=== PATIENT | male | born 1985 | race African-American/Black ===

== ENCOUNTER 2024-10-13 01:02 | Day surgery (SDC) | payer OTHER, SELFPAY ==
[2024-09-28 12:22] VITALS: BMI 25.2
--- NOTE | 2024-09-28 12:27 | PC.NURSE ---
Report to hospital entrance 7 right of the green pavilion located off [facility] by Joe gonzalez, at time _0630_ on date _[id number]_. Planned Procedure Time: _829_.? Time changes happen often and if your time is changed the preop area will call you the afternoon before. - You and your visitor will be asked to self-screen and do not enter if you have any COVID symptoms. Please call surgeon if you need to reschedule. - A mask is optional within the hospital at this time. Patients may have clear liquids (water, carbonated beverages, clear teas, apple juice) until 3 hours prior to surgery with a maximum of 20 ounces. - No food from midnight until time of surgery and no smoking, or chewing tobacco (or any form of nicotine). No chewing gum, candy or mints. Take only the following medications with a SIP of water on the morning of surgery: ___Inhalers.____ DO NOT STOP ANY OF YOUR OTHER PRESCRIPTION MEDICATIONS PRIOR TO SURGERY EXCEPT THE FOLLOWING Hold all vitamins and supplements for 3 days per anesthesiologist. Medications to discontinue per physician Date to take last dose Please no make-up, nail english, hairspray, perfume, deodorant, or body powder the day of surgery.? No jewelry (including any body piercings) or valuables the day of surgery, leave them at home.? Please take a shower or bath the night before, or the morning of, surgery with an antibacterial soap.? Wear comfortable, loose fitting clothing.? - Jewelry must be removed prior to entering the operating room.? Rings and piercings that are not removed may be cut off. - The hospital will not accept responsibility for valuables.? - Please leave all valuables, including medications, at home the day of surgery. If you are going home after surgery, a licensed wagon driver must drive you home.? - NO public transportation without another adult if you receive anesthesia. - We recommend that an adult stay with you for 24 hours following discharge. - We also recommend that you do not drive, make important decision, drink alcoholic beverages, or take any drugs that were not prescribed by your health care provider for at least 24 hours after your discharge time. Follow any additional instructions given to you from your surgeon. Telephone instructions given to __Caitlin Perez___and asked if any additional questions and then verbalized understanding. Patient advised to call surgeon office or pre surgery nurse liaison [phone] if any additional questions.
--- NOTE | 2024-10-03 08:02 | P.HP_ITS ---
History of Present Illness History of Present Illness Consent: Risks, benefits, and alternatives have been discussed and questions answered. Patient agrees to proceed with procedure. Chief complaint: bulbous urethral stricture Narrative: Aravind Fong is a 38 year old male [facility] 07/2023: ?FOV in [facility] after care by Dr. Mack ?- 03/2023: [facility] dense 2cm bulbous urethral stricture 07/2023: ?PVR: 25cc Cysto. dense bulbous stricture Review of Systems Review of Systems: All systems reviewed & are unremarkable except as noted in HPI and below PMFSH Social History Social History Living arrangements: incarcerated Meds Home Medications and Allergies Home Medications ?Medication ?Instructions ?Recorded ?Confirmed ?Type albuterol 90 mcg/actuation aerosol 180 mcg inhalation QID PRN dyspnea 09/28/24 09/28/24 History inhaler mometasone 220 mcg/actuation(120 1 inh inhalation Q12H 09/28/24 09/28/24 History doses)breath activated powder inhaler tiotropium bromide 18 mcg capsule 1 cap inhalation DAILY 09/28/24 09/28/24 History with inhalation device (Spiriva with HandiHaler) Allergies Allergy/AdvReac Type Severity Reaction Status Date / Time No Known Allergies Allergy Verified 09/28/24 12:17 Exam Const: General: no acute distress Resp: Effort & Inspection: normal respiratory effort GI: Inspection: non-distended GI Palp: No abdominal tenderness and No Guarding due to palpation present (GI) Auscultation: normal bowel sounds Assessment and Plan Assessment and plan (1) Bulbous urethral stricture: Code(s): N35.912 - Unspecified bulbous urethral stricture, male Status: Acute Assessment and Plan: * Optical internal urethrotomy - aware of possible indwelling cateter for several days
[2024-10-13] VITALS (7 sets, daily range): BP systolic 102–143; BP diastolic 70–98; PULSE 59–70; RESP 12–16; TEMP 36.4–36.7; O2SAT 100
--- OUTSIDE RECORDS SUMMARY | 2024-10-13 01:05 | XMS_ITS | Clinical Summary ---
Author Organization [facility] Address [address] [place] [address] Care Team Providers Care Body Trimmer Name Role Phone Nighat Ziegler MD, [facility] Primary Care Provider [phone] Allergies No known active allergies Medications albuterol (PROVENTIL) (2.5 MG/3ML) 0.083% nebulizer solution Take 3 mLs (2.5 mg total) by nebulization every 6 (six) hours as needed for Wheezing. Active fluticasone-lauren meterol (ADVAIR DISKUS) 250-50 MCG/ACT inhaler Inhale 1 puff into the lungs 2 (two) times daily. Active Active Problems Problem Noted Date Diagnosed Date Stricture of male urethra, unspecified stricture type 02/25/2023 Social History Tobacco Use Types Packs/Day Years Used Date Smoking Tobacco: Never Passive Smoke Exposure: Never Smokeless Tobacco: Never Tobacco Cessation:Counseling Given: Not Answered Sex and Gender Information Value Date Recorded Sex Assigned at Not on file Legal Sex Male 3:28 PM CDT Gender Identity Not on file Sexual Orientation Not on file Last Filed Vital Signs Vital Sign Reading Time Taken Comments Blood Pressure 145/92 03/06/2023 10:06 AM SERVICES ACCOUNT MANAGER Pulse 50 03/06/2023 10:06 AM SERVICES ACCOUNT MANAGER Temperature 37 C (98.6 F) 03/06/2023 9:35 AM SERVICES ACCOUNT MANAGER Respiratory Rate 18 03/06/2023 10:06 AM SERVICES ACCOUNT MANAGER Oxygen Saturation 100% 03/06/2023 10:06 AM SERVICES ACCOUNT MANAGER Inhaled Oxygen Concentration - - Weight 84.8 kg (187 lb) 03/06/2023 7:57 AM SERVICES ACCOUNT MANAGER Height 193 cm (6' 4) 03/06/2023 7:57 AM SERVICES ACCOUNT MANAGER Body Mass Index 22.76 03/06/2023 7:57 AM SERVICES ACCOUNT MANAGER Plan of Treatment Health Maintenance Due Date Last Done Comments Annual Physical 1989 Hepatitis C 2004 DTaP, Tdap and Td Vaccines ( 1 - Tdap) 2005 Hepatitis B Vaccines (1 of 3 - 19+ 3-dose series) 2005 HPV Vaccines (1 - 3-dose SCD M series) 2013 COVID-19 Vaccine (1 - 2023-2 5 season) 2023 PHQ-2 (Physician [place]) 03/02/2024 Meningococcal B Vaccine Aged Out No l onger eligible based on patient's age to complete this topic Meningococcal Vaccine Aged Out No narayan betito eligible based on patient's age to complete this topic Pneumococcal Vaccine: Pediat rics (0 to 5 Years) and At-Risk Patients (6 to 49 Years) Aged Out No longer eligible b ased on patient's age to complete this topic RSV Immunizations Under 20 Months Aged Out No longer eligible based on patient's age to complete this topic Insurance [employer] Member Subscriber Plan / Payer (Ef fective 2022-Present) Name:Aravind Fong Relation to Subscriber:Self Name:Aravind Fong Payer ID:Not on file Group ID:Not on file Type:Not on file Address: [address] [place] [id number] Care Teams Body Trimmer Relationship Specialty Start Date End Date Tariq Disla MD [facility] [address] [place] [address] PCP - General INTERNAL MEDICINE 09/23/22
--- NOTE | 2024-10-13 06:22 | WPDHPUPDATE1 ---
History and Physical Update Update Date/Time: 10/13/24 06:22 History and Physical has been reviewed, including an updated exam of the patient. There are NO changes in the patient's condition. Risks, benefits, and alternatives have been discussed and questions answered. Patient agrees to proceed with procedure.
[2024-10-13] MEDS: LACTATED RINGERS 1,000 ML 30 ML IV CONT (07:00)
--- NOTE | 2024-10-13 07:02 | WPDANESEPPF ---
Anes - Initial Pre Proc Eval Procedure: Operation Date: 10/13/24 08:15 Proposed Procedures p Optical Internal Urethrotomy - Jayjay Nevarez MD Date/Time: 10/13/24 07:02 Surgeon: Jayjay Nevarez MD Pre Op Diagnosis: bulbous urethral stricture Patient Data Age: 38 Gender: M Height: 1.93 m Weight: 94.2 kg Allergies Allergy/AdvReac Type Severity Reaction Status Date / Time No Known Allergies Allergy Verified 09/28/24 12:17 Home Medications ?Medication ?Instructions ?Recorded ?Confirmed ?Type albuterol 90 mcg/actuation aerosol 180 mcg inhalation QID PRN dyspnea 09/28/24 09/28/24 History inhaler mometasone 220 mcg/actuation(120 1 inh inhalation Q12H 09/28/24 09/28/24 History doses)breath activated powder inhaler tiotropium bromide 18 mcg capsule 1 cap inhalation DAILY 09/28/24 09/28/24 History with inhalation device (Spiriva with HandiHaler) Patient hx anesthesia problems: none Family hx anesthesia problems: none Results Review: All pre-operative results and documents have been reviewed as part of the pre-operative evaluation. [facility] Past Medical History Medical History (Updated 10/13/24 @ 07:07 by Peter Steiner DO) Asthma Social History Social History Living arrangements: incarcerated Anes - Eval Final PreProcedure Day of Procedure 10/13/24 07:02 Patient weight: overweight Heart: regular rate and rhythm Lungs: clear to auscultation Airway: Mallampati scale class II Neurological: alert and oriented Last oral intake: >/= 8 hours ASA classification: II Emergent: no Anesthetic plan: proceed Anesthesia type and monitoring: general LMA and standard monitoring Results Review: All pre-operative results and documents have been reviewed as part of the pre-operative evaluation. Informed Consent: The patient's anesthetic plan and its attendant risks and benefits were discussed with the patient/family/POA. Questions were solicited and answers provided to the satisfaction of the patient/family/POA.
[2024-10-13] MEDS: ceFAZolin 2 GM in SODIUM CHLORIDE 0.9% IV 50 ML 100 ML IVPB (07:27)
[2024-10-13] MEDS: LIDOCAINE 2% GEL UROJET 10 ML PKG MUCOUS MEM (07:33)
--- NOTE | 2024-10-13 08:04 | W.PM.PROC2 ---
Procedure Note - Detailed Date of Procedure 10/13/24 Pre-op Diagnosis Urethral stricture Post-op Diagnosis Same Procedure Performed Cystoscopy, optical internal urethrotomy, urethral dilatation Surgeon Jayjay Nevarez MD Anesthesia General Findings 2.5 cm urethral stricture extending from the bulbous urethra into the proximal penile urethra Description of Procedure Patient is brought to the operative suite was prepped draped in routine sterile fashion while dorsal lithotomy position after the uneventful induction of a general anesthetic. Cystoscopy was 1st undertaken with a 19 F rigid cystoscope. He has a tight stricture that I ultimately measured approximately 2.5 cm extending from the bulbous urethra into the proximal penile urethra. Using an optical internal urethra tome initially incised the stricture at the 12 o'clock position. The most proximal portion of the stricture I dilated with Amplatz dilators from 14 F to 22 F. cystoscopy was otherwise unremarkable with a normal appearing bladder. A placed in 18 F [place] tip catheter to drainage. I plan to leave the catheter for 5 days. Ultimately, if patient's stricture recurs he may be better served with formal urethroplasty.
== END 2024-10-13 09:43 | disposition home or self-care (01) ==
PROVIDERS: Visit Provider Urology
PROC: (CPT 52276; principal; 2024-10-13 08:15)
DX: N35.912 Unspecified bulbous urethral stricture, male (principal); J45.909 Unspecified asthma, uncomplicated; Z79.51 Long term (current) use of inhaled steroids
CPT/HCPCS: 52276; J0690; C1726; C1769; J1100; J2250; J2405; J2704; J3010; J7120